=== PATIENT | female | born 1955 | race Caucasian/White ===

== ENCOUNTER → 2025-04-30 11:33 | Outpatient (CLI) | payer BC, SELFPAY ==
--- NOTE | 2025-04-30 11:36 | DI.MRI.S_ITS ---
PROCEDURE: MR KNEE RT WO CON INDICATIONS: meniscus tear TECHNIQUE: Noncontrast sagittal PD fast spin echo and T2 fast spin echo with fat saturation, sagittal 3-D FLASH with fat saturation; coronal T1 spin echo and PD fast spin echo with fat saturation, and axial PD fast spin echo with fat saturation through the knee. COMPARISON: None. FINDINGS: Image quality: Excellent. Menisci: Subtle signal changes in the posterior horn of the medial meniscus exit to the inferior surface suspicious for oblique tear. Irregular appearance and heterogeneous signal in the anterior horn of the lateral meniscus extending into the anterior meniscal root and blunting/truncation of the apices anterior and posterior horns with mid body free edge fraying, maceration/degeneration and radial tears. Posterior meniscocapsular separation medial and lateral. Lateral meniscus is markedly extruded laterally and the medial meniscus mildly extruded medially on the coronal images Cruciate ligaments: Mild increased T2 weighted signal and thickening of the mid posterior cruciate ligament suspicious for mild injury/strain without tear or retraction. Anterior cruciate ligament is grossly normal. Medial structures: Mild increased T2 weighted signal and thickening of the proximal medial collateral ligament mild grade 1 injury. Mild increased T2 weighted signal with areas of thinning distal semimembranosus tendon insertion, injury/strain without complete tear or retraction. Mild increased lateral bursal fluid. Pes anserinus tendons normal. Lateral structures: Mild increased T2 weighted signal and thickening of the proximal lateral collateral ligament mild injury/strain. Mild increased lateral bursal fluid. The long and short heads of the biceps femoris tendon appear intact. Iliotibial band appears normal. Anterior structures: Mild lateral subluxation of the patella in relation to the femoral trochlea. No patella [place] or [place]. Mild nonspecific edema infrapatellar fat pad. Mild subchondral edema medial and lateral patellar facets. The quadriceps and patellar tendons appear intact. Bones and cartilage: Moderate diffuse cartilage thinning in the medial, lateral and patellofemoral compartments with osteophytes. No bone marrow contusions or fractures. Joint space: Moderate knee joint effusion. No significant popliteal cyst. IMPRESSION: Extensive lateral meniscus tears. Mild medial meniscus tear posterior horn as discussed above. Mild signal changes in the cruciate ligaments, medial collateral ligament, semimembranosus, lateral collateral ligament, as discussed above. Moderate degenerative changes. Moderate knee joint effusion. Other findings as above Dictated by: Isaac German M.D. on 04/30/2025 at 13:26 Approved by: Isaac German M.D. on 04/30/2025 at 13:44
== END ==
LOC: MRI 11:35
PROVIDERS: PCP Physician Assistant; Referring Provider Orthopaedic Surgery; Visit Provider Orthopaedic Surgery
DX: M25.561 Pain in right knee (principal); S83.281A Other tear of lateral meniscus, current injury, right knee, initial encounter; S83.241A Other tear of medial meniscus, current injury, right knee, initial encounter; M25.461 Effusion, right knee; S83.011A Lateral subluxation of right patella, initial encounter
CPT/HCPCS: 73721